=== PATIENT | female | born 1940 | race Caucasian/White ===

== ENCOUNTER → 2023-10-06 12:50 | Outpatient (REF) | payer OTHER, SELFPAY | LOC: RAD 12:50 | PROVIDERS: ATTENDING PHYSICIAN Nurse Practitioner | DX: R07.81 Pleurodynia (principal); M25.532 Pain in left wrist; M25.552 Pain in left hip | CPT/HCPCS: 71101; 73110; 73502 ==

== ENCOUNTER → 2024-09-06 10:43 | Outpatient (REF) | payer OTHER, SELFPAY | LOC: RAD 10:43 | PROVIDERS: ATTENDING PHYSICIAN Hospitalist | DX: L03.113 Cellulitis of right upper limb (principal) | CPT/HCPCS: 93971 ==

== ENCOUNTER 2024-09-17 15:25 | Inpatient (IN) | payer OTHER, SELFPAY ==
[2024-09-15 15:21] VITALS: BP 153/85
[2024-09-15 16:17] LABS: % Basophils 0.7 % (0-2); % Eosinophils 4.7 % (0-6); % Immature Granulocytes 0.1 % (0-0.5); % Lymphocytes 25.2 % (20.5-51.1); % Monocytes 9.2 % (1.7-9.3); % Neutrophils 60.1 % (42.2-75.2); Absolute Basophils 0.1 10^3/uL (0-0.2); Absolute Eosinophils 0.5 10^3/uL (0-0.7); Absolute Lymphocytes 2.4 10^3/uL (1.2-3.4); Absolute Monocytes 0.9 10^3/uL (0.1-0.6); Absolute Neutrophils 5.8 10^3/uL (1.4-6.5); Hematocrit 43.1 % (37.0-47.0); Hemoglobin 14.3 g/dL (12.0-16.0); Mean Corp Hgb Conc. 33.2 g/dL (33.0-37.0); Mean Corpuscular Hgb 30.1 pg (27.0-31.0); Mean Corpuscular Volume 90.7 fL (81.0-99.0); Mean Platelet Volume 9.7 fL (7.4-10.4); Nucleated Red Blood Cells % 0 %; Platelet Count 272 10^3/uL (130-400); Red Blood Cell Count 4.75 10^6/uL (4.20-5.40); Red Cell Dist. Width 13.7 % (11.5-14.5); White Blood Cell Count 9.7 10^3/uL (4.8-10.8)
[2024-09-15 16:21] LABS: ALT (SGPT) 37 U/L (0-35); AST (SGOT) 36 U/L (14-36); Albumin 4.2 g/dl (3.5-5.0); Alkaline Phosphatase 96 U/L (38-126); Blood Urea Nitrogen 26 mg/dl (7-17); Calcium 9.5 mg/dl (8.4-10.2); Carbon Dioxide 22 mmol/L (22-30); Chloride 104 mmol/L (98-107); Glucose 106 mg/dl (70-99); Potassium 4.8 mmol/L (3.5-5.1); Sodium 135 mmol/L (135-145); Total Bilirubin 1.3 mg/dl (0.2-1.3); Total Protein 6.9 g/dl (6.3-8.2); eGFR 56.25
[2024-09-15 20:31] VITALS: BP 135/77; BMI 29.0
--- NOTE | 2024-09-15 20:37 | EDRN ---
Pt has had cellulitis in her R arm x 2 weeks. Pt has been on 2 abx, doxycyline was started couple days ago. Pt says cellulitis has not changed and her arm 'is as tight as can be.' Pt has lymphedema L arm. Pt says her R arm is warm to touch, no
itching. No fever/chills/cough, n/v/c/d, cp, sob. Pt went to her doctor today and was told to come to ED since she has been seen three times for the cellulitis and it is not getting better. No pain.
--- NOTE | 2024-09-15 21:10 | ED.GENMED ---
History of Present Illness
General
Chief Complaint: Skin Problem
Source: patient
Exam Limitations: none
Time Seen by Provider: 09/15/24 20:34
Nursing documentation reviewed up to this point in time: agreed with
History of Present Illness
History of Present Illness:
84-year-old female status postmastectomy bilaterally lymphedema on the left, right arm redness swelling warmth for about 10 days finished course of Bactrim and then a few pills of doxycycline, followed up with her PCP referred here for evaluation
and admission no fever no nausea vomiting minimal pain, not known to be diabetic denies any animal bites tells me she had an ultrasound recently to rule out clot
Past History
Past History
ED Past Medical History: Cancer
ED Past Surgical History: Other (Bilateral mastectomy)
Social History
Tobacco: Non-smoker
Alcohol: None
Drug: None
Living: with family
Employment: Retired
Review of Systems
Review of Systems
All Other Systems: Not applicable
Constitutional: Denies fever
ABD/GI: Reports no symptoms
: Reports no symptoms
Musculoskeletal: Reports no symptoms
Skin: Reports other (Redness)
Phy Exam
Physical Exam
Physical Exam:
Physical Exam
General: no apparent distress, not acutely ill
Neck: No jaundice
Heart: s1/s2 regular rate and rhythm, no murmur. equal radial pulses.
Lungs: no acute respiratory distress. clear bilaterally
Abdomen: Nontender
Neuro: alert and oriented. no focal neurological deficits
Skin: no rash
Psychiatric: well kept. interactive and cooperative
Extremities: Redness of the right upper extremity from the axilla down to the mid forearm no cords
Course
Orders/Labs/Results
Orders:
Orders
09/15/24 15:56
Complete Blood Count/With Diff Urgent
Comprehensive Metabolic Panel Urgent
09/15/24 21:08
CeFAZolin 2 GRAM [Ancef] 2 grams in 10 ml IV NOW
Abnormal Lab Results
09/15/24
15:56
Absolute Monos (auto) 0.9 H 10^3/uL
(0.1-0.6)
BUN 26 H mg/dl
(7-17)
Glucose 106 H mg/dl
(70-99)
ALT 37 H U/L
(0-35)
09/15/24 15:56
09/15/24 15:56
Vital Signs
Initial and Last Documented VS:
Initial Vital Signs
Temp Pulse Resp BP Pulse Ox
98.1 F 66 18 153/85 96
09/15/24 15:21 09/15/24 15:21 09/15/24 15:21 09/15/24 15:21 09/15/24 15:21
Last Documented Vital Signs
Temp Pulse Resp BP Pulse Ox
97.7 F 78 16 135/77 95
09/15/24 20:41 09/15/24 20:31 09/15/24 20:31 09/15/24 20:31 09/15/24 20:31
MDM/Problems Addressed
Differential Diagnosis Includes:
Cellulitis lymphangitis DVT
MDM/Problems Addressed:
Swollen right
Chronic conditions affecting care:
Lymphedema breast cancer
Acute Exacerbation and/or Progression of Chronic Illness:
Lymphedema breast
*Pulse Oximetry
Patient hypoxic: no
*Critical Care Note
Total Time (30-74mins, 75-104mins- exclusive of procedures): Not Applicable
Update Note
Update Note:
Update patient with recurrent symptoms, appears to be cellulitis other concern would be dermatitis, clot has been ruled out, will start on Ancef admit for further care
ED Attending Note
-
Portions of this chart may have been created with voice recognition software.� Occasional wrong word or��sound alike� substitutions may have occurred due to the inherent limitations of voice recognition software.
Discharge Plan
Departure
Patient Disposition: Admit
Date of Disposition: 09/15/24
Time of Disposition: 21:24
Admit to: Med/Surg
Presentation/result/management discussed w/ accepting MD/DO: Hospitalist
Condition: Good
Covid-19: Not Applicable
Discharge Problem:
Cellulitis
Prescriptions:
No Action
Antiobiotic
1 cap PO DAILY
Patient Comments:
pt does not know name or mg
multivitamin Tablet
1 tab PO DAILY
naproxen sodium [Aleve] 220 mg Capsule
220 mg PO DAILY
Probiotic
1 cap PO DAILY
Vitamin C
1 tab PO DAILY
Patient Comments:
pt does not know mg
calcium
1 tab PO DAILY
Patient Comments:
pt does not know mg
doxycycline hyclate
1 cap PO DAILY
Patient Comments:
pt does not know mg
turmeric
1 tab PO DAILY
Patient Comments:
pt does not know mg
Referrals:
Margot Urbina MD [Family Provider] -
Interventions
Interventions:
*Risk Screen - Suicide Last Done: 09/15/24 15:21
*General Assessment Last Done: 09/15/24 15:21
*Neglect/Abuse Screening Last Done: 09/15/24 15:21
*ED COVID-19 Vaccine History Last Done: 09/15/24 15:21
ED-Skin Assessment Last Done: 09/15/24 20:43
Discharge Date and Time
Print Language: KINYARWANDA
[2024-09-15] MEDS: ANCEF 10 IV (21:32)
--- NOTE | 2024-09-15 21:43 | HPS.HSE ---
Family Physician
-
Family Physician: Margot Urbina MD
Chief Complaint
-
Right upper extremity swelling and redness
History of Present Illness
This is a 84-year-old female with past medical history significant for breast cancer status post bilateral mastectomy with reconstructions in the presents to the emergency department with right upper extremity swelling and redness.
Patient reported that she had chronic lymphedema affecting the left arm but never has swelling in the right arm. About 10 days ago she started having swelling in her right arm. There was redness and warmth. She was diagnosed with cellulitis. She
completed a course of Bactrim without any improvement. She also took a few doses of doxycycline and followed up with her PCP. Due to failure of outpatient antibiotics she was referred to the patient.
Patient denies tenderness. She denies any trauma. She denies any recollection of insect bite. He has not had any fevers or chills. She denies any other recent antibiotic use. She denies any recent hospitalizations.
She had an ultrasound 9 days ago that was negative for a thrombus.
In the ED today she was afebrile, blood pressure was 135/77 with a pulse of 78 satting 97% on room air. CBC was completely unremarkable. Electrolytes BUN/creatinine were all within the normal range.
Medical History
Past Medical History
Past Medical History: Reports Cancer (Breast cancer post bilateral dissection obstruction,), Hypercholesterolemia and Other (Chronic upper extremity lymphedema)
Past Surgical History: Reports Other (Bilateral mastectomy)
Social History
Tobacco: Former Smoker
Alcohol: Occasional
Drug: None
Personal: Single
Living: Alone (Independent living)
Employment: Retired
Family History
Family History: Not pertinent
Allergies / Home Medications
Allergies reflects when Allergies were last updated in [employer].
Home Medications with original date entered in [employer]
Allergy/Medication List:
Allergies
Allergy/AdvReac Type Severity Reaction Status Date / Time
No Known Allergies Allergy Verified 09/15/24 15:27
Home Medications
Lactobac no.2-Bifidobac no.1-S. thermo 112.5 billion cell capsule (Visbiome) 1 cap PO DAILY 09/15/24
ascorbic acid (vitamin C) 500 mg tablet (Vitamin C) 500 mg PO DAILY 09/15/24
atorvastatin 20 mg tablet (Lipitor) 20 mg PO DAILY 09/15/24
calcium carbonate 500 mg PO DAILY 09/15/24
doxycycline monohydrate 100 mg capsule 100 mg PO HS 09/15/24
naproxen sodium 220 mg capsule (Aleve) 220 mg PO DAILY 09/15/24
therapeutic multivitamin 1 tab PO DAILY 09/15/24
timolol 0.5 % eye drops 1 drp RIGHT EYE BID 09/15/24
turmeric 400 mg capsule 400 mg PO DAILY 09/15/24
Review of Systems
-
History Source: Patient
Constitutional: Reports No Symptoms
EENT: Reports No Symptoms
Respiratory: Reports No Symptoms
Cardiac: Reports No Symptoms
Abdomen/GI: Reports No Symptoms
: Reports No Symptoms
Musculoskeletal: Reports Edema
Skin: Reports Rash
Neurological: Reports No Symptoms
Endocrine: Reports No Symptoms
Hematologic/Lymphatic: Reports No Symptoms
Psych: Reports No Symptoms
Physical Exam
Vital Signs
Vital Signs
Temp Pulse Resp BP Pulse Ox
97.7 F 78 16 135/77 95
09/15/24 20:41 09/15/24 20:31 09/15/24 20:31 09/15/24 20:31 09/15/24 20:31
Physical Exam
General: Well Developed, Well Nourished, No Apparent Distress and Comfortable
HEENT: NormoCephalic, Anicteric, Moist mucous membranes and Atraumatic
Respiratory: Clear
Cardiac: S1/S2 and Regular Rhythm
Breast: Deferred by me
GI: Soft, Non Tender, Non Distended and Normal Bowel Sounds
Rectal: Deferred by Provider
Genito-urinary: Deferred by me
Musculoskeletal: No Clubbing, No Cyanosis and No Edema
Skin: Warm and Rash (7 cm erythematous patch with edema of the right fore-arm and arm. Non-tender to palpation)
Neuro: AO x 3 and Nonfocal/grossly intact
Hematologic/Lymphatic: No Lymphadenopathy
Psych: Calm
Laboratory Results
-
09/15/24 15:56
09/15/24 15:56
Laboratory Results
Total Bilirubin 1.3 mg/dl (0.2-1.3) 09/15/24 15:56
AST 36 U/L (14-36) 09/15/24 15:56
ALT 37 U/L (0-35) H 09/15/24 15:56
Alkaline Phosphatase 96 U/L (38-126) 09/15/24 15:56
Data Reviewed
-
Ultrasound: Report Reviewed by me
Lab Data: Labs Reviewed by me
Old Records: Reviewed
Impression/Plan
-
IMPRESSION:
84 y.o with chronic arm swelling 2/2 bilateral mastectomy comes in with 10 days of R upper extremity swelling, erythema w/o tenderness or signs of systemic infection. Failure of outpatient oral abx.
PLAN:
1. Cellulitis - Erythema, edema. No tenderness to palpation. Negative for blood clot on u/s
- admit to med/surg obs
- trial of IV cefazolin for now
- keep arm elevated
- check mrsa
- consider id consult
2. Hyperlipidemia
- continue atorvastatin
DVT PPX - lovenox sq
Code status - Full Code
--- NOTE | 2024-09-15 22:12 | EDRN ---
Went in to apply DNR bracelet and pt decided she does NOT want to be a DNR. TT to provider
[2024-09-15 23:07] VITALS: BP 145/85
[2024-09-16] MEDS: ANCEF 10 IV ×3 (05:59→23:13)
[2024-09-16 06:24] VITALS: BP 134/71
[2024-09-16 07:20] VITALS: BP 130/96
[2024-09-16] MEDS: LIPITOR 20 MG PO (08:18)
[2024-09-16] MEDS: TIMOPTIC 0.5% OPHTHALMIC SOLUTION RIGHT EYE (08:19)
--- NOTE | 2024-09-16 10:01 | W.PN.HOSP.TC ---
Today's Communication/Plan
-
IV antibiotics
Await cultures
Assessment / Plan
Assessment / Plan
84-year-old pleasant female with right upper extremity redness and swelling
CVS: S1-S2 normal
Chest: CTA B/L
Abdomen: Soft, NT / Bowel sounds present
Extremities: Left arm with sleeve
Right arm edema and Redness. Redness looks better from the pen ayaan.
MILK INSPECTOR: Non focal exam
# Cellulitis right upper extremity
Patient has edema also
History of breast cancer with mastectomy and lymph node dissection from the right side
Ancef 2 g every 8 hours to be continued
She tried oral cephalosporin and doxycycline as outpatient-possibly dose was not sufficient
MRSA screening
Await cultures
Elevate arm-she is doing it
# Lymphedema
# Hyperlipidemia-continue atorvastatin
# B/L mastectomy for breast cancer
# DVT prophylaxis-Lovenox
# Full code
Anticipated Discharge: 24 - 48 hours
Subjective/Interval History
-
Date of Service: September 16, 2024
Objective Data
-
Vital Signs:
Vital Signs
Temp Pulse Resp BP Pulse Ox
97.9 F 64 16 130/96 97
09/16/24 07:20 09/16/24 07:20 09/16/24 07:20 09/16/24 07:20 09/16/24 07:20
[2024-09-16 13:00] VITALS: BP 140/77
--- NOTE | 2024-09-16 17:40 | PTCARENOTE ---
09/16- Patient transferred and oriented to unit without issue. AAOX3, Telemetry currently NSR. Patient denies any current needs.
[2024-09-16 17:55] VITALS: BMI 27.6
[2024-09-16 17:56] VITALS: BP 169/85
[2024-09-16] MEDS: LOVENOX SC (18:12)
[2024-09-16 19:00] VITALS: BP 162/88
[2024-09-16] MEDS: TIMOPTIC 0.5% OPHTHALMIC SOLUTION 1 DROP RIGHT EYE (21:15)
[2024-09-16 23:00] VITALS: BP 157/67
[2024-09-17 03:30] VITALS: BP 165/80
[2024-09-17] MEDS: ANCEF 10 IV ×3 (05:02→21:05)
[2024-09-17 07:34] VITALS: BP 173/83
[2024-09-17] MEDS: LIPITOR 20 MG PO (08:17)
[2024-09-17] MEDS: TIMOPTIC 0.5% OPHTHALMIC SOLUTION 1 DROP RIGHT EYE ×2 (08:19→21:06)
[2024-09-17] MEDS: LOVENOX SC (08:19)
--- NOTE | 2024-09-17 11:22 | CM ---
Pt seen bedside. Initial assessment completed. Admitted for right upper extremity swelling and redness.
Pt reports that she lives at [facility], [facility] living. Pt is independent w/ ambulating, denies any DME for daily functioning.
Pt states there are grab bars in the bathroom that were there when she moved in. Pt stated there are also pull cords throughout her apartment for emergencies. Pt reports she was at [facility] rehab unit in the past. Pt is current w/ [facility]
once a month and has been going for a long time.
Address, point of contact and insurance verified
PCP: Dr. Urbina
Pharmacy: [facility]
Pt currently admitted as OBS. ORTIZ form reviewed, pt given copy, copy placed on chart
Plan: Home; no needs
[2024-09-17 11:42] VITALS: BP 163/77
[2024-09-17 11:52] LABS: Hematocrit 39.2 % (37.0-47.0); Hemoglobin 13.8 g/dL (12.0-16.0); Mean Corp Hgb Conc. 35.2 g/dL (33.0-37.0); Mean Corpuscular Hgb 30.9 pg (27.0-31.0); Mean Corpuscular Volume 87.7 fL (81.0-99.0); Mean Platelet Volume 10.9 fL (7.4-10.4); Platelet Count 171 10^3/uL (130-400); Red Blood Cell Count 4.47 10^6/uL (4.20-5.40); Red Cell Dist. Width 13.8 % (11.5-14.5); White Blood Cell Count 9.4 10^3/uL (4.8-10.8)
--- NOTE | 2024-09-17 15:23 | W.PN.HOSP.TC ---
Today's Communication/Plan
-
Continue Ancef
MRSA screen pending
ID evaluation tomorrow
Assessment / Plan
Assessment / Plan
84-year-old pleasant female with right upper extremity redness and swelling
CVS: S1-S2 normal
Chest: CTA B/L
Abdomen: Soft, NT / Bowel sounds present
Extremities: Left arm with sleeve
Right arm edema and Redness. Redness looks better from the pen ayaan. Edema noted
# Cellulitis right upper extremity
No blood cultures obtained in the ER ,since she already on IV antibiotics , obtain if patient spikes any fevers.
Patient has edema also
History of breast cancer with mastectomy and lymph node dissection from the right side
Ancef 2 g every 8 hours to be continued
She tried oral cephalosporin and doxycycline as outpatient-possibly dose was not sufficient
MRSA screening
Await cultures
Elevate arm-she is doing it
Infectious disease consultation-routine
# Lymphedema
# Hyperlipidemia-continue atorvastatin
# B/L mastectomy for breast cancer 1990s
# DVT prophylaxis-Lovenox
# Full code
Anticipated Discharge: 24 - 48 hours
Subjective/Interval History
-
Date of Service: September 17, 2024
Objective Data
-
Labs:
Laboratory Results
09/17/24
11:28
WBC 9.4
Hgb 13.8
Hct 39.2
Plt Count 171 D
Vital Signs:
Vital Signs
Temp Pulse Resp BP Pulse Ox
98.1 F 62 16 163/77 96
09/17/24 11:42 09/17/24 11:42 09/17/24 11:42 09/17/24 11:42 09/17/24 11:42
I&O
09/16/24 09/17/24 09/18/24
06:59 06:59 06:59
Intake Total 480 / 480
Balance 480 / 480
[2024-09-17 15:44] VITALS: BP 142/77
[2024-09-17 19:30] VITALS: BP 164/82
[2024-09-17] MEDS: SENOKOT-S 1 TABLET PO (21:52)
[2024-09-17 23:38] VITALS: BP 152/76
[2024-09-18 03:27] VITALS: BP 127/72
[2024-09-18] MEDS: ANCEF 10 IV ×3 (05:27→22:53)
[2024-09-18 08:00] VITALS: BP 146/73
[2024-09-18] MEDS: LIPITOR 20 MG PO (08:32)
[2024-09-18] MEDS: TIMOPTIC 0.5% OPHTHALMIC SOLUTION 1 DROP RIGHT EYE ×2 (08:33→19:58)
--- NOTE | 2024-09-18 12:16 | CM ---
CM reviewed chart, patient seen bedside. ID consulted. Patient denies any needs to CM at this time. CM will continue to follow for all discharge planning needs.
Plan; return to [facility] when medically stable.
[2024-09-18 12:45] VITALS: BP 157/83
--- NOTE | 2024-09-18 15:25 | CON.ID ---
Consultation
-
Date/Time Consultation Requested: September 18, 2024 0818
Date/Time Consultation Performed: September 18, 2024 1525
Requesting Provider: Dr. Roberth Grant
Performing Provider: Dr. Penelope Foster
Reason for Consultation: Right upper extremity cellulitis
Chief Complaint / Past History
Chief Complaint
Right arm swelling and redness
History of Present Illness
84-year-old female with remote history of bilateral breast cancer status post bilateral lymph node dissections, mastectomies with reconstruction, left upper extremity lymphedema for which she receives therapy, minimal right upper extremity
lymphedema who came to the hospital on September 15 due to right upper extremity cellulitis. She reports that approximately 2 weeks ago she noted the right arm was red medial lead then descended down the forearm. Her right arm also became very
swollen. This has never happened before. Her primary care physician prescribed 5 days of Bactrim without response. She was then placed on doxycycline for few days but still without significant response and therefore she was sent to the ER. She
is currently on cefazolin. Since then she reports the arm is less firm, softer, less edematous, and redness better. No wounds. No trauma. She is keeping the arm elevated. No fevers or chills.
Past History
Additional Past Medical History:
HLD
History of breast cancer with bilateral lymph node dissection
Left upper extremity lymphedema s/p lymphatic transfer procedure
History of bilateral mastectomy with reconstruction
Allergy History:
No Known Allergies Allergy (Verified 09/15/24 15:27)
Medications Reviewed: Yes
Current Antibiotics:
Cefazolin day 4
Social History
Tobacco: Former Smoker
Alcohol: None
Drug: None
Personal: Single
Living: Alone
Review of Systems
Review of Systems
General: Negative Fever, Chills or Change in Appetite
HEENT: Negative Sinus Problems or Headache
Cardiovascular: Negative Chest Pain or Dyspnea
Respiratory: Negative Dyspnea or Cough
Gasteroenterology: Negative Nausea, Vomiting or Diarrhea
Genital / Urological: Negative Dysuria or Flank Pain
Endocrine: Negative Weakness
All systems: All other systems were reviewed and were negative
Vital Signs
Temp Pulse Resp BP Pulse Ox
98.1 F 75 16 157/83 97
09/18/24 12:45 09/18/24 12:45 09/18/24 12:45 09/18/24 12:45 09/18/24 12:45
Physical Exam
Physical Exam
Constitutional: No Acute Distress and Comfortable
Cardiovascular: Regular Rate and S1/S2
Gastrointestinal: Soft, Non Tender and Non Distended
Genito-Urinary: Negative CVA Tenderness
Neurological: AO x 3
Lab / Diagnostic Study Results
09/17/24 11:28
09/15/24 15:56
Abs Immat Gran (auto) 0.0 10^3/uL (0-0.05) 09/15/24 15:56
Absolute Neuts (auto) 5.8 10^3/uL (1.4-6.5) 09/15/24 15:56
Absolute Lymphs (auto) 2.4 10^3/uL (1.2-3.4) 09/15/24 15:56
Absolute Monos (auto) 0.9 10^3/uL (0.1-0.6) H 09/15/24 15:56
Absolute Basos (auto) 0.1 10^3/uL (0-0.2) 09/15/24 15:56
Immature Gran % 0.1 % (0-0.5) 09/15/24 15:56
Neutrophils % 60.1 % (42.2-75.2) 09/15/24 15:56
Lymphocytes % 25.2 % (20.5-51.1) 09/15/24 15:56
Monocytes % 9.2 % (1.7-9.3) 09/15/24 15:56
Eosinophils % 4.7 % (0-6) 09/15/24 15:56
Basophils % 0.7 % (0-2) 09/15/24 15:56
Microbiology Results
Micro:
09/16/24 08:21 MRSA Screen - Final
Nose No Methicillin Resistant Staphylococcus aureus isolated.
Assessment / Plan
# RUE cellulitis with lymphedema
# hx bilateral breast CA, LN dissection, mastectomies
# Chronic LUE lymphedema
- Cellulitis improving with cefazolin (d4).
- Daniele-wrap compression.
- Elevate RUE
- Tomorrow anticipate transition to cephalexin 1000mg po q8 through 09/24/24
--- NOTE | 2024-09-18 16:06 | W.PN.HOSP.TC ---
Today's Communication/Plan
-
IV Ancef
Assessment / Plan
Assessment / Plan
84-year-old pleasant female with right upper extremity redness and swelling
CVS: S1-S2 normal
Chest: CTA B/L
Abdomen: Soft, NT / Bowel sounds present
Extremities: Left arm with sleeve
Right arm edema and Redness. Redness looks better from the pen ayaan. Edema noted
# Cellulitis right upper extremity
No blood cultures obtained in the ER ,since she already on IV antibiotics , obtain if patient spikes any fevers.
Patient has edema also-NAIF bandage
History of breast cancer with mastectomy and lymph node dissection from the right side
Ancef 2 g every 8 hours to be continued
She tried oral cephalosporin and doxycycline as outpatient-possibly dose was not sufficient
MRSA screening neg
Elevate arm-she is doing it
Infectious disease consultation-routine appreciated
# Lymphedema
# Hyperlipidemia-continue atorvastatin
# B/L mastectomy for breast cancer
# DVT prophylaxis-Lovenox
# Full code
Anticipated Discharge: Within 24 hours
Subjective/Interval History
-
Date of Service: September 18, 2024
Objective Data
-
Vital Signs:
Vital Signs
Temp Pulse Resp BP Pulse Ox
98.1 F 75 16 157/83 97
09/18/24 12:45 09/18/24 12:45 09/18/24 12:45 09/18/24 12:45 09/18/24 12:45
I&O
09/17/24 09/18/24 09/19/24
06:59 06:59 06:59
Intake Total 1919
Balance 1919
[2024-09-18 16:48] VITALS: BP 149/87
[2024-09-18] MEDS: LOVENOX 40 MG SC (17:30)
[2024-09-18 23:57] VITALS: BP 143/90
[2024-09-19] MEDS: ANCEF 10 IV ×2 (05:18→13:29)
[2024-09-19 08:05] VITALS: BP 163/91
[2024-09-19] MEDS: LIPITOR 20 MG PO (08:52)
[2024-09-19] MEDS: TIMOPTIC 0.5% OPHTHALMIC SOLUTION 1 DROP RIGHT EYE (08:53)
--- NOTE | 2024-09-19 08:56 | W.PN.ID1 ---
Date of Service
Date of Service: September 19, 2024
Today's Communication
- Can transition to cephalexin 1000mg po q8 through 09/24/24
-DC home today
Assessment / Plan
# RUE cellulitis with lymphedema
# hx bilateral breast CA, LN dissection, mastectomies
# Chronic LUE lymphedema
- Cellulitis improving with cefazolin (d5).
- Can transition to cephalexin 1000mg po q8 through 09/24/24
- Follow-up at her lymphedema clinic.
Chief Complaint
-: Cellulitis
Subjective / Review of Systems
Continues to feel better.
Vital Signs / Physical Exam
Vital Signs
Vital Signs
Temp Pulse Resp BP Pulse Ox
97.2 F 70 20 163/91 94
09/19/24 08:05 09/19/24 08:05 09/19/24 08:05 09/19/24 08:05 09/19/24 08:05
Physical Exam
Constitutional: No Acute Distress and Comfortable
Pulmonary: Clear
Gastrointestinal: Soft, Non Tender, Non Distended and Normal Bowel Sounds
Extremities: Other (RUE edema decreased, erythema receding)
Neurological: AO x 3
Objective Data
Lab Data
Lab Results
09/17/24 11:28
09/15/24 15:56
Total Bilirubin 1.3 mg/dl (0.2-1.3) 09/15/24 15:56
AST 36 U/L (14-36) 09/15/24 15:56
ALT 37 U/L (0-35) H 09/15/24 15:56
Alkaline Phosphatase 96 U/L (38-126) 09/15/24 15:56
Most recent labs reviewed.
Micro Results:
09/16/24 08:21 MRSA Screen - Final
Nose No Methicillin Resistant Staphylococcus aureus isolated.
Care Review
Plan reviewed with: Physician (Dr. Grant)
--- NOTE | 2024-09-19 15:08 | W.PN.HOSP.TC ---
Addendum entered and electronically signed by Roberth Grant MD 09/19/24 16:46:
Dictation- [id number]
Original Note:
Today's Communication/Plan
-
Discharge
Assessment / Plan
Assessment / Plan
84-year-old pleasant female with right upper extremity redness and swelling
CVS: S1-S2 normal
Chest: CTA B/L
Abdomen: Soft, NT / Bowel sounds present
Extremities: Left arm with sleeve
Right arm edema and Redness. Redness resolved. Patient will wrap with bandage. She will also follow-up with Anibal Webb.
# Cellulitis right upper extremity
No blood cultures obtained in the ER ,since she already on IV antibiotics , obtain if patient spikes any fevers.
Patient has edema also-NAIF bandage
History of breast cancer with mastectomy and lymph node dissection from the right side
Ancef 2 g every 8 hours to be continued
She tried oral cephalosporin and doxycycline as outpatient-possibly dose was not sufficient
MRSA screening neg
Elevate arm-she is doing it
Infectious disease consultation-routine appreciated
# Lymphedema
# Hyperlipidemia-continue atorvastatin
# B/L mastectomy for breast cancer
# DVT prophylaxis-Lovenox
# Full code
Patient has bilateral lymph node dissection and lymphedema therefore blood work was limited so that she does not need IV sticks. IV was placed in the right arm better of the both.
She is feeling Much better redness has resolved
Discussed with infectious disease
Anticipated Discharge: Today
Subjective/Interval History
-
Date of Service: September 19, 2024
Objective Data
-
Vital Signs:
Vital Signs
Temp Pulse Resp BP Pulse Ox
97.2 F 70 20 163/91 94
09/19/24 08:05 09/19/24 08:05 09/19/24 08:05 09/19/24 08:05 09/19/24 08:05
I&O
09/18/24 09/19/24 09/20/24
06:59 06:59 06:59
Intake Total 1919 480 / 480
Balance 1919 480 / 480
--- NOTE | 2024-09-19 15:26 | CM ---
Pt is medically stable for d/c today. Per ID, pt switched to PO abx
Met w/ pt bedside who is aware and agreeable to d/c today. Her neighbor will transport her home
IMM reviewed, pt given copy, copy placed in chart
No CM needs identified at this time
Plan: Home; no needs
--- NOTE | 2024-09-19 16:46 | W.DS.TRANS ---
DC Summary - Recruiter Coordinator
-
Discharge Instructions:
Discharge Diagnosis/Procedures Cellulitis right upper extremity
Lymphedema
Bilateral mastectomy
High cholesterol
Diet As tolerated
Activity As tolerated
Driving Restrictions As prior to admission
Instructions:
Stand-Alone Forms:
Changes to Home Medications: Yes
Discharge Medications:
DC Medications w/original date entered in [employer]
Lactobac no.2-Bifidobac no.1-S. thermo 112.5 billion cell capsule (Visbiome) 1 cap PO DAILY Supplement 09/15/24
ascorbic acid (vitamin C) 500 mg tablet (Vitamin C) 500 mg PO DAILY Supplement 09/15/24
atorvastatin 20 mg tablet (Lipitor) 20 mg PO DAILY High Cholesterol 09/15/24
calcium carbonate 500 mg PO DAILY Supplement 09/15/24
therapeutic multivitamin 1 tab PO DAILY Supplement 09/15/24
timolol 0.5 % eye drops 1 drp RIGHT EYE BID Eye Condition 09/15/24
turmeric 400 mg capsule 400 mg PO DAILY Supplement 09/15/24
cephalexin 500 mg capsule 1,000 mg (2 x 500 mg) PO Q8H Skin issues #32 caps 09/19/24
Home Medication Changes
new
Keflex
Pending Results: No
== END 2024-09-19 16:13 | disposition home health service (06) | DRG 603 ==
LOC: 4 WEST ACU 15:25
PROVIDERS: Emergency Medicine; ADMITTING PHYSICIAN Internal Medicine; ATTENDING PHYSICIAN Hospitalist; CONSULT PHYSICIAN Internal Medicine Infectious Disease; EMERGENCY PHYSICIAN Emergency Medicine; FAMILY PHYSICIAN Hospitalist
DX: L03.113 Cellulitis of right upper limb (principal); Z87.891 Personal history of nicotine dependence; E78.00 Pure hypercholesterolemia, unspecified; Z90.13 Acquired absence of bilateral breasts and nipples; I89.0 Lymphedema, not elsewhere classified; Z85.3 Personal history of malignant neoplasm of breast
CPT/HCPCS: 80053; 85025; 85027; 87070; 96374; 99284

== ENCOUNTER 2024-11-09 12:58 | Outpatient (RCR) | payer OTHER, SELFPAY | END 2024-11-09 23:59 | disposition home or self-care (01) | LOC: RPT 12:58 | PROVIDERS: ATTENDING PHYSICIAN Internal Medicine Infectious Disease; FAMILY PHYSICIAN Hospitalist | DX: I97.2 Postmastectomy lymphedema syndrome (principal); L90.5 Scar conditions and fibrosis of skin; Z73.6 Limitation of activities due to disability | CPT/HCPCS: 97140; 97163; 97530 ==

== ENCOUNTER 2024-11-15 10:06 | Outpatient (RCR) | payer OTHER, SELFPAY | END 2024-11-15 23:59 | disposition home or self-care (01) | LOC: RPT 10:06 | PROVIDERS: ATTENDING PHYSICIAN Internal Medicine Infectious Disease; FAMILY PHYSICIAN Hospitalist | DX: I97.2 Postmastectomy lymphedema syndrome (principal); L90.5 Scar conditions and fibrosis of skin; Z73.6 Limitation of activities due to disability | CPT/HCPCS: 97140 ==

== ENCOUNTER → 2024-11-27 14:12 | Outpatient (REF) | payer OTHER, SELFPAY | LOC: HWRAD 14:12 | PROVIDERS: ATTENDING PHYSICIAN Hospitalist | DX: M25.561 Pain in right knee (principal); M79.661 Pain in right lower leg | CPT/HCPCS: 73560; 73590 ==

== ENCOUNTER → 2025-02-20 10:27 | Outpatient (REF) | payer OTHER, SELFPAY | LOC: HWRAD 10:27 | PROVIDERS: ATTENDING PHYSICIAN Nurse Practitioner | DX: M25.511 Pain in right shoulder (principal); M25.512 Pain in left shoulder | CPT/HCPCS: 73030 ==

== ENCOUNTER 2025-05-14 09:04 | Outpatient (RCR) | payer OTHER, SELFPAY | END 2025-05-14 23:59 | disposition home or self-care (01) | LOC: RPT 09:04 | PROVIDERS: ATTENDING PHYSICIAN Physician Assistant; FAMILY PHYSICIAN Internal Medicine | DX: I97.2 Postmastectomy lymphedema syndrome (principal); Z73.6 Limitation of activities due to disability; M79.601 Pain in right arm; Z85.3 Personal history of malignant neoplasm of breast; Z90.13 Acquired absence of bilateral breasts and nipples | CPT/HCPCS: 29584; 97140; 97163; 97530 ==

== ENCOUNTER 2025-06-11 08:24 | Outpatient (RCR) | payer OTHER, SELFPAY | END 2025-06-11 23:59 | disposition home or self-care (01) | LOC: RPT 08:24 | PROVIDERS: ATTENDING PHYSICIAN Physician Assistant; FAMILY PHYSICIAN Internal Medicine | DX: I97.2 Postmastectomy lymphedema syndrome (principal); Z73.6 Limitation of activities due to disability; M79.601 Pain in right arm; Z85.3 Personal history of malignant neoplasm of breast; Z90.13 Acquired absence of bilateral breasts and nipples | CPT/HCPCS: 29584; 97140; 97530 ==